=== PATIENT | female | born 1985 | race Caucasian/White ===

== ENCOUNTER 2017-01-01 20:22 | Emergency (ER) | payer MEDICAID, OTHER ==
[2017-01-01 20:45] VITALS: BP 121/64
[2017-01-01] MEDS ORDERED: Ondansetron TAB* 4 MG PO ONE ×2 (21:15→21:32)
[2017-01-01] MEDS ORDERED: Acetaminophen TAB* 325 MG PO ONE (21:15)
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
--- NOTE | 2017-01-01 21:55 | RAD ---
INDICATION: Intracranial injury COMPARISON: None TECHNIQUE: Noncontrast axial source images were acquired from the skull base to the vertex. FINDINGS: Ventricles/sulci: The ventricles and cisterns are normal in size and configuration for age. Brain parenchyma: There is no focal parenchymal finding, evidence of intracranial mass, or intracranial mass effect. Intracranial hemorrhage:None. Extra-axial spaces: There are no abnormal extra axial fluid collections or evidence of extra-axial mass. Calvarium: There is no calvarial fracture or other calvarial abnormality. Scalp: There is no evidence of scalp or extracalvarial soft tissue abnormality. Paranasal sinuses/mastoid: The paranasal sinuses and mastoid air cells are clear. Other: None. IMPRESSION: NEGATIVE EXAMINATION
== END 2017-01-01 22:36 | disposition home or self-care (01) ==
LOC: ED 20:22
DX: S09.90XA Unspecified injury of head, initial encounter (principal); S06.0X0A Concussion without loss of consciousness, initial encounter; Y09 Assault by unspecified means; Y93.9 Activity, unspecified; Y92.9 Unspecified place or not applicable; Y99.9 Unspecified external cause status; R11.0 Nausea; R51 Headache
CPT/HCPCS: 70450; 99283; A9270-GY

== ENCOUNTER 2017-01-12 13:49 | Emergency (ER) | payer MEDICAID, OTHER ==
[2017-01-12] MEDS ORDERED: Ondansetron TAB* 4 MG PO ONE (19:34)
[2017-01-12] MEDS ORDERED: ALPRAZolam TAB* 0.25 MG PO ONE (19:35)
--- NOTE | 2017-01-12 20:15 | RAD ---
Indication: Headache. CT of the brain was performed without IV contrast. Ventricular structures are midline. No midline shift is noted. The extraction spaces are unremarkable. There is no evidence of intracranial mass or hemorrhage. No other high or low density lesions are identified. Mastoid air cells and paranasal sinuses are unremarkable. When compared to previous exam of January 01, 2017 no significant change is noted. IMPRESSION: No intracranial mass or hemorrhage is noted.
[2017-01-12] MEDS ORDERED: Ondansetron INJ* 2 MG/ML VIAL ONE (20:46)
[2017-01-12] MEDS ORDERED: HYDROmorphone INJ* 1 MG/ML CARPUJECT SYRINGE ONE (20:46)
--- NOTE | 2017-01-13 03:17 | ED ---
Luis Christopher Salem, scribed for Jamel Shafer on 01/12/17 at 1940 . Dizziness - HPI Summary HPI Summary: Patient is a 31 y/o female who presents to the ED with dizziness. She reports she was diagnosed with a concussion 10 days ago. She denies a LEWIS, fever, chest pain, but reports 2-3 anxiety attacks per day, disorientation, light sensitivity, and nausea. She is requests trauma counseling and a referral to a neurologist. Pt is a smoker, but denies EtOH use. - History Of Current Complaint Chief Complaint: EDHeadache Stated Complaint: HEAD PAIN/DIZZY Time Seen by Provider: 01/12/17 19:24 Hx Obtained From: Patient Onset/Duration: Gradually Timing: Constant Severity Initially: Moderate Severity Currently: Moderate Character: Dizzy - Disorientation. Aggravating Factor(s): Other - Light. Alleviating Factor(s): Nothing Associated Signs And Symptoms: Positive: Nausea, Other: - Anxiety. - Allergies/Home Medications Allergies/Adverse Reactions: Allergies Allergy/AdvReac Type Severity Reaction Status Date / Time No Known Allergies Allergy Verified 01/12/17 13:52 PMH/Surg Hx/FS Hx/Imm Hx Endocrine/Hematology History: Denies: Hx Diabetes Cardiovascular History: Denies: Hx Hypertension Infectious Disease History: No Infectious Disease History: Denies: Traveled Outside the [place] in Last 30 Days - Family History Known Family History: Positive: Cardiac Disease - Both grandfathers. , Other - Breast cancer - both grandmothers. - Social History Alcohol Use: None Substance Use Type: Reports: None Hx Tobacco Use: Yes Smoking Status (MU): Smoker, Current Status Unknown Review of Systems Negative: Fever Positive: Nausea Neurological: Other - Dizziness. All Other Systems Reviewed And Are Negative: Yes Physical Exam Triage Information Reviewed: Yes Vital Signs On Initial Exam: Initial Vitals Temp Pulse Resp BP Pulse Ox 99.4 F 107 18 124/86 100 01/12/17 13:52 01/12/17 13:52 01/12/17 13:52 01/12/17 13:52 01/12/17 13:52 Vital Signs Reviewed: Yes Appearance: Positive: Well-Appearing, No Pain Distress Skin: Positive: Warm, Skin Color Reflects Adequate Perfusion, Dry Head/Face: Positive: Normal Head/Face Inspection Eyes: Positive: EOMI, AUDREY Neck: Positive: Supple, Nontender Respiratory/Lung Sounds: Positive: Clear to Auscultation, Breath Sounds Present Cardiovascular: Positive: RRR, Pulses are Symmetrical in both Upper and Lower Extremities Abdomen Description: Positive: Nontender, Soft Bowel Sounds: Positive: Present Musculoskeletal: Positive: Normal, Strength/ROM Intact Neurological: Positive: Normal, Sensory/Motor Intact, Alert, Oriented to Person Place, Time - Panther Burn Coma Scale Coma Scale Total: 15 Diagnostics - Vital Signs Vital Signs Temp Pulse Resp BP Pulse Ox 01/12/17 17:00 97.9 F 98 18 136/88 100 01/12/17 16:09 98.0 F 94 18 115/66 100 01/12/17 15:05 98.7 F 108 18 107/77 99 01/12/17 13:52 99.4 F 107 18 124/86 100 - Laboratory Lab Statement: Any lab studies that have been ordered have been reviewed, and results considered in the medical decision making process. - CT BRAIN CT Interpretation Completed By: Radiologist - IMPRESSION: No intracranial mass or hemorrhage is noted. Re-Evaluation - Re-Evaluation 2030 Comment: Discussed Brain CT results with pt and future plans. Pt is agreeable. Will also provide pt with directions to contact outreach and education social worker. Dizzy Course/Dx - Diagnoses Provider Diagnoses: Head injury, Concussion Discharge - Discharge Plan Condition: Stable Disposition: HOME Prescriptions: ALPRAZolam TAB* [Xanax TAB*] 0.25 mg PO BID #10 tab MDD 2 Ondansetron [Zofran Odt] 4 mg PO TID #20 tab Patient Education Materials: Alprazolam (By mouth), Ondansetron (By mouth), Head Injury (ED) Referrals: Sincere Hester MD [Medical Doctor] - Additional Instructions: Follow up with Dr. Hester (Neurologist) within 1 week. The documentation as recorded by the Luis cardona Salem accurately reflects the service I personally performed and the decisions made by , Jamel Shafer.
[2017-01-13 04:06] VITALS: BP 114/74
== END 2017-01-12 21:00 | disposition home or self-care (01) ==
LOC: ED 13:49
DX: S06.0X9A Concussion with loss of consciousness of unspecified duration, initial encounter (principal); S09.90XA Unspecified injury of head, initial encounter; R42 Dizziness and giddiness; R11.0 Nausea; F41.9 Anxiety disorder, unspecified; X58.XXXA Exposure to other specified factors, initial encounter; Y93.9 Activity, unspecified; Y92.9 Unspecified place or not applicable; Z72.0 Tobacco use
CPT/HCPCS: 70450; 96374; 96375; 99283; A9270-GY; J1170; J2405

== ENCOUNTER 2017-09-12 16:41 | Emergency (ER) | payer SELFPAY ==
[2017-09-12 16:56] VITALS: BP 107/61
--- NOTE | 2017-09-12 17:29 | UC ---
Complaint Female HPI - HPI Summary HPI Summary: This is an otherwise healthy 31 yo male who presented with c/o dysuria and vaginal odor. Patient is concerned about an STD. She had unprotected intercourse ~1 month ago. She has been using vinegar douches, homeopathic vaginal suppositories, and cranberry tablets to treat what she thought was BV and a UTI. She now has abd pain and c/o feelings of being feverish. She would like to be screened for all STDs. Denies vaginal lesions. - History Of Current Complaint Chief Complaint: UCGU Stated Complaint: PERSONAL Hx Last Menstrual Period: 08/17/17 - Allergies/Home Medications Allergies/Adverse Reactions: Allergies Allergy/AdvReac Type Severity Reaction Status Date / Time No Known Allergies Allergy Verified 09/12/17 16:57 Home Medications: Home Medications Cranberry (Vaccinium Macrocarp [Cranberry] 5 tab PO DAILY 09/12/17 [History Confirmed 09/12/17] Garlic 5 tab PO DAILY 09/12/17 [History Confirmed 09/12/17] PMH/Surg Hx/FS Hx/Imm Hx Previously Healthy: Yes - Surgical History Surgical History: Yes Surgery Procedure, Year, and Place: tonsilectomy - Family History Known Family History: Positive: Cardiac Disease - Both grandfathers. , Other - Breast cancer - both grandmothers. - Social History Alcohol Use: Rare Substance Use Type: None Smoking Status (MU): Light Every Day Tobacco Smoker Type: Cigarettes Amount Used/How Often: 1/4-1/2 ppd Length of Time of Smoking/Using Tobacco: since age 15 Review of Systems Constitutional: Negative Skin: Negative Eyes: Negative ENT: Negative Respiratory: Negative Cardiovascular: Negative Gastrointestinal: Abdominal Pain Genitourinary: Dysuria Motor: Negative Neurovascular: Negative Musculoskeletal: Negative Neurological: Negative Psychological: Negative Is Patient Immunocompromised?: No All Other Systems Reviewed And Are Negative: Yes Physical Exam Triage Information Reviewed: Yes Appearance: Well-Appearing Vital Signs: Initial Vital Signs Temp 98.7 F 09/12/17 16:46 Pulse 79 09/12/17 16:46 Resp 14 09/12/17 16:46 BP 107/61 09/12/17 16:46 Pulse Ox 99 09/12/17 16:46 Vital Signs Reviewed: Yes ENT Exam: Normal Neck exam: Normal Respiratory Exam: Normal Respiratory: Positive: Lungs clear. Negative: Crackles, Rhonchi, Wheezing Cardiovascular: Positive: RRR, No Murmur Abdomen Description: Positive: Soft. Negative: Nontender - diffuse TTP Musculoskeletal: Positive: Strength Intact Neurological Exam: Normal Psychological Exam: Normal Skin Exam: Normal - Additional Comments Pelvic exam: External genitalia is free of lesions. Some vaginal bleeding noted , no additional odor or discharge. No CMT. Cervix free of lesions Diagnostics - Laboratory Diagnostic Studies Completed/Ordered: UA - neg. Upreg - neg Complaint Female Dx - Course Course Of Treatment: This is a 31 yo female concerned about an STD with c/o dysuria and vaginal odor. UA neg. No obvious exam findings minus diffuse abd pain. Collected vaginal and urine samples. Patient left the clinic before blood draw could be collected. - Differential Dx/Diagnosis Differential Diagnosis/HQI/PQRI: Pelvic Inflammatory Disease, Sexually Transmitted Disease, Urinary Tract Infection Provider Diagnoses: 1. Possible STD - results pending, no empiric treatment Discharge - Discharge Plan Condition: Stable Disposition: HOME Patient Education Materials: Sexually Transmitted Diseases (ED) Referrals: Eder SHAW,Kiko Jennings [Primary Care Provider] - If Needed Additional Instructions: Instructions: 1. Your urinanalysis and exam today were normal 2. We will receive you lab results in 1-2d and you will be contacted in the case of a positive result
[2017-09-13 11:35] LABS: Trichomonas Source Endocervical (Negative)
--- NOTE | 2017-09-13 18:10 | ED ---
Progress - Progress Note Progress Note: call patient. gardnerella (+). will call in flagy 500 bid x 7 days. Course/Dx - Course Course Of Treatment: This is a 31 yo female concerned about an STD with c/o dysuria and vaginal odor. UA neg. No obvious exam findings minus diffuse abd pain. Collected vaginal and urine samples. Patient left the clinic before blood draw could be collected. - Diagnoses Provider Diagnoses: Vaginal discharge
--- NOTE | 2017-09-14 15:29 | ED ---
Progress - Progress Note Progress Note: call patient. gardnerella (+). will call in flagy 500 bid x 7 days. 09/14/17 call patient g/c/tric negative Course/Dx - Course Course Of Treatment: This is a 31 yo female concerned about an STD with c/o dysuria and vaginal odor. UA neg. No obvious exam findings minus diffuse abd pain. Collected vaginal and urine samples. Patient left the clinic before blood draw could be collected. - Diagnoses Provider Diagnoses: Vaginal discharge
== END 2017-09-12 17:45 | disposition home or self-care (01) ==
LOC: UCEAST 16:41
DX: R30.0 Dysuria (principal); N89.8 Other specified noninflammatory disorders of vagina; Z32.02 Encounter for pregnancy test, result negative; F17.210 Nicotine dependence, cigarettes, uncomplicated
CPT/HCPCS: 81003; 84702; 87480; 87491; 87510; 87591; 87661; 99212; G0463

== ENCOUNTER 2018-07-15 16:35 | Emergency (ER) | payer MEDICAID ==
[2018-07-15] MEDS ORDERED: diPHENhydraMINE IV* 50 MG/ML 1 ml VIAL (BENADRYL) IV ONE (17:51)
[2018-07-15] MEDS ORDERED: NS 0.9% 1000 ML* 1,000 ML IV ONE (17:51)
[2018-07-15] MEDS ORDERED: Metoclopramide IV* 5 MG/ML 2 ML VIAL IV SLOW PU ONE (17:51)
[2018-07-15] MEDS ORDERED: Ketorolac INJ* 30 MG/ML 1 ML VIAL IV PUSH ONE (17:52)
[2018-07-15 18:41] LABS: ABS Basophils 0.1 10^3/ul (0-0.2); ABS Eosinophils 0 10^3/ul (0-0.6); ABS Monocytes 0.3 10^3/ul (0-0.8); ABS Neutrophils 3.8 10^3/ul (1.5-7.7); ABS Nucleated RBC 0 10^3/ul; Eosinophil % 0.7 % (0-6); Hematocrit 41 % (35-47); Hemoglobin 13.7 g/dl (12.0-16.0); Lymphocyte % 32.4 % (25-47); Mean Corpuscular HGB Conc 34 g/dl (31-36); Mean Corpuscular Hemoglobin 31 pg (27-31); Mean Corpuscular Volume 92 fL (80-97); Mean Platelet Volume 8.4 um3 (7.4-10.4); Nucleated Red Blood Cells % 0.1; Platelet Count 309 10^3/ul (150-450); Red Blood Count 4.43 10^6/ul (4.00-5.40); Red Cell Distribution Width 13 % (10.5-15); White Blood Count 6.2 10^3/ul (3.5-10.8)
[2018-07-15 18:53] LABS: EGFR Non-African American 97.4 (>60)
--- NOTE | 2018-07-15 19:09 | RAD ---
EXAM: CT Head Without Intravenous Contrast CLINICAL HISTORY: 32 years old, female; Signs and symptoms; Other: Headache TECHNIQUE: Axial computed tomography images of the head/brain without intravenous contrast. All CT scans at this facility use at least one of these dose optimization techniques: automated exposure control; mA and/or kV adjustment per patient size (includes targeted exams where dose is matched to clinical indication); or iterative reconstruction. COMPARISON: BRAIN WO CT BRAIN WO 01/12/2017 7:56 PM FINDINGS: Brain: Unremarkable. No hemorrhage. No significant white matter disease. No edema. Ventricles: Unremarkable. No ventriculomegaly. Bones/joints: Unremarkable. No acute fracture. Soft tissues: Unremarkable. Sinuses: Unremarkable as visualized. No acute sinusitis. Mastoid air cells: Unremarkable as visualized. No mastoid effusion. IMPRESSION: No acute intracranial pathology.
--- NOTE | 2018-07-15 20:06 | ED ---
Headache - HPI Summary HPI Summary: 32-year-old female presents with headache for the past couple days. States she admits to photophobia. She states she is nauseous. She denies any diarrhea. She states she's been having difficulties concentrating. She states that everything feels hypersensitive. She states that she has been feels like when she has concussion a year and a half ago. She was seen by multiple neurologists for the concussion. She states that she was not having concussion symptoms for the past couple months but then on Sunday the symptoms returned. She denies any new head injury. She denies any history of migraines. She states she's been a lot of stress in her life due to recent miscarriage. She said been crying a lot. - History Of Current Complaint Chief Complaint: EDHeadache Stated Complaint: HEADACHE/SENSITIVE TO LIGHT Time Seen by Provider: 07/15/18 17:43 Hx Last Menstrual Period: 08/17/17 - Allergies/Home Medications Allergies/Adverse Reactions: Allergies Allergy/AdvReac Type Severity Reaction Status Date / Time No Known Allergies Allergy Verified 07/15/18 16:46 PMH/Surg Hx/FS Hx/Imm Hx Endocrine/Hematology History: Denies: Hx Diabetes Cardiovascular History: Denies: Hx Hypertension Respiratory History: Reports: Hx Pneumonia Denies: Hx Asthma Psychiatric History: Denies: Hx Eating Disorder, Hx of Violent Episodes Against Others - Surgical History Surgery Procedure, Year, and Place: tonsilectomy Infectious Disease History: No Infectious Disease History: Denies: Traveled Outside the [place] in Last 30 Days - Family History Known Family History: Positive: Cardiac Disease - Both grandfathers. , Other - Breast cancer - both grandmothers. - Social History Alcohol Use: None Substance Use Type: Reports: Other Substance Use Comment - Amount & Last Used: kratom occasionally Hx Tobacco Use: Yes Smoking Status (MU): Current Some Day Smoker Type: Cigarettes Amount Used/How Often: 1/4-1/2 ppd Length of Time of Smoking/Using Tobacco: since age 15 Review of Systems Negative: Fever Negative: Chest Pain Negative: Shortness Of Breath Positive: Headache All Other Systems Reviewed And Are Negative: Yes Physical Exam Triage Information Reviewed: Yes Vital Signs On Initial Exam: Initial Vitals Temp Pulse Resp BP Pulse Ox 98.2 F 65 19 140/80 97 07/15/18 16:38 07/15/18 16:38 07/15/18 16:38 07/15/18 16:38 07/15/18 16:38 Vital Signs Reviewed: Yes Appearance: Positive: Well-Appearing Skin: Positive: Warm, Dry Head/Face: Positive: Normal Head/Face Inspection Eyes: Positive: Normal, Conjunctiva Clear ENT: Positive: Pharynx normal Respiratory/Lung Sounds: Positive: Clear to Auscultation, Breath Sounds Present Cardiovascular: Positive: Normal, RRR Abdomen Description: Positive: Nontender, Soft Bowel Sounds: Positive: Present Musculoskeletal: Positive: Normal Neurological: Positive: Sensory/Motor Intact, Alert, Oriented to Person Place, Time, CN Intact II-III Psychiatric: Positive: Normal - Gagandeep Coma Scale Best Eye Response: 4 - Spontaneous Best Motor Response: 6 - Obeys Commands Best Verbal Response: 5 - Oriented Coma Scale Total: 15 Diagnostics - Vital Signs Vital Signs Temp Pulse Resp BP Pulse Ox 07/15/18 18:14 104/68 07/15/18 18:01 62 101/65 97 07/15/18 18:00 57 97 07/15/18 17:32 62 105/47 98 07/15/18 17:31 74 97 07/15/18 16:38 98.2 F 65 19 140/80 97 - Laboratory Lab Results: Lab Results 07/15/18 07/15/18 Range/Units 18:25 18:25 WBC 6.2 (3.5-10.8) 10^3/ul RBC 4.43 (4.00-5.40) 10^6/ul Hgb 13.7 (12.0-16.0) g/dl Hct 41 (35-47) % MCV 92 (80-97) fL MCH 31 (27-31) pg MCHC 34 (31-36) g/dl RDW 13 (10.5-15) % Plt Count 309 (150-450) 10^3/ul MPV 8.4 (7.4-10.4) um3 Neut % (Auto) 60.7 (38-83) % Lymph % (Auto) 32.4 (25-47) % [place] % (Auto) 5.4 (0-7) % Eos % (Auto) 0.7 (0-6) % Baso % (Auto) 0.8 (0-2) % Absolute Neuts (auto) 3.8 (1.5-7.7) 10^3/ul Absolute Lymphs (auto) 2.0 (1.0-4.8) 10^3/ul Absolute Monos (auto) 0.3 (0-0.8) 10^3/ul Absolute Eos (auto) 0 (0-0.6) 10^3/ul Absolute Basos (auto) 0.1 (0-0.2) 10^3/ul Absolute Nucleated RBC 0 10^3/ul Nucleated RBC % 0.1 Sodium 138 (135-145) mmol/L Potassium 4.1 (3.5-5.0) mmol/L Chloride 109 (101-111) mmol/L Carbon Dioxide 23 (22-32) mmol/L Anion Gap 6 (2-11) mmol/L BUN 9 (6-24) mg/dL Creatinine 0.69 (0.51-0.95) mg/dL Est GFR ( Amer) 117.8 (>60) Est GFR (Non-Af Amer) 97.4 (>60) BUN/Creatinine Ratio 13.0 (8-20) Glucose 91 (70-100) mg/dL Calcium 9.2 (8.6-10.3) mg/dL Magnesium Pending Total Bilirubin 0.70 (0.2-1.0) mg/dL AST 14 (13-39) U/L ALT 13 (7-52) U/L Alkaline Phosphatase 53 (34-104) U/L C-Reactive Protein < 1.00 (<8.01) mg/L Total Protein 6.5 (6.4-8.9) g/dL Albumin 4.3 (3.2-5.2) g/dL Globulin 2.2 (2-4) g/dL Albumin/Globulin Ratio 2.0 (1-3) Beta HCG, Quant < 0.60 mIU/mL Result Diagrams: 07/15/18 18:25 07/15/18 18:25 Lab Statement: Any lab studies that have been ordered have been reviewed, and results considered in the medical decision making process. - CT brain CT Interpretation: No Acute Changes CT Interpretation Completed By: Radiologist Re-Evaluation - Re-Evaluation First Eval Re-Evaluation Time: 20:53 Change: Improved Comment: feeling better, no longer nausous Headache Course/Dx - Course Course Of Treatment: 32-year-old female presents with headache for the past couple days. States she admits to photophobia. She states she is nauseous. She denies any diarrhea. She states she's been having difficulties concentrating. She states that everything feels hypersensitive. She states that she has been feels like when she has concussion a year and a half ago. She was seen by multiple neurologists for the concussion. She states that she was not having concussion symptoms for the past couple months but then on Sunday the symptoms returned. She denies any new head injury. She denies any history of migraines. She states she's been a lot of stress in her life due to recent miscarriage. She said been crying a lot. On exam normal neuro exam. Patient appears photophobic. gave Benadryl Toradol and Reglan and feeling better. CT brain normal. Labs within normal limits. Told to follow- up with neurology as likely has migaines. gave Zofran for nausea. Patient understands agrees with plan. - Diagnoses Differential Diagnosis/HQI/PQRI: Subdural Hematoma, Migraine, Tension Headache, Viral Syndrome Provider Diagnoses: Headache Discharge - Sign-Out/Discharge Documenting (check all that apply): Patient Departure - Discharge Plan Condition: Good Disposition: HOME Prescriptions: Ondansetron ODT TAB* [Zofran 4 MG Odt TAB*] 4 mg PO Q6H PRN #12 tab.odt PRN Reason: Nausea Patient Education Materials: General Headache (ED) Referrals: Eder SHAW,Kiko Jennings [Primary Care Provider] - Kiko Lambert MD [Medical Doctor] - Additional Instructions: Take Tylenol or ibuprofen for pain every 6 hours Take zofran every 6 hours for nausea Follow up with neurology Return to ED if develop any new or worsening symptoms - Billing Disposition and Condition Condition: GOOD Disposition: Home
[2018-07-15 20:21] VITALS: BP 98/71
== END 2018-07-15 20:21 | disposition home or self-care (01) ==
LOC: ED 16:35
DX: R51 Headache (principal); Z72.0 Tobacco use; H53.149 Visual discomfort, unspecified; R11.0 Nausea
CPT/HCPCS: 36415; 70450; 80053; 83735; 84702; 85025; 86140; 96361; 96374; 96375; 99283; J1200; J1885; J2765

== ENCOUNTER 2019-08-28 13:54 | Emergency (ER) | payer MEDICAID, OTHER ==
--- NOTE | 2019-08-28 16:24 | ED ---
Skin Complaint - HPI Summary HPI Summary: Patient c/o rash/boil, posterior neck, initial onset several days ago. states attempted to saúl boil, no purulent d/c. Patient worried may spread. Subjective fever, mild headache. no n/v, systemic symptoms. have been taking motrin and applying topical abx. - History of Current Complaint Chief Complaint: EDHeadache Time Seen by Provider: 08/28/19 16:00 Stated Complaint: CYST PER PT Hx Obtained From: Patient Hx Last Menstrual Period: 08/17/17 Onset/Duration: Started Days Ago Timing: Constant Onset Severity: Moderate Current Severity: Mild Pain Intensity: 4 Skin Location: Other: - neck - Allergy/Home Medications Allergies/Adverse Reactions: Allergies Allergy/AdvReac Type Severity Reaction Status Date / Time No Known Allergies Allergy Verified 08/28/19 14:13 PMH/Surg Hx/FS Hx/Imm Hx Endocrine/Hematology History: Denies: Hx Diabetes Cardiovascular History: Denies: Hx Hypertension Respiratory History: Reports: Hx Pneumonia Denies: Hx Asthma Psychiatric History: Denies: Hx Eating Disorder, Hx of Violent Episodes Against Others - Surgical History Surgery Procedure, Year, and Place: tonsilectomy Infectious Disease History: No Infectious Disease History: Denies: Traveled Outside the [place] in Last 30 Days - Family History Known Family History: Positive: Cardiac Disease - Both grandfathers. , Other - Breast cancer - both grandmothers. - Social History Alcohol Use: Occasionally Substance Use Type: Reports: Other Substance Use Comment - Amount & Last Used: kratom occasionally Hx Tobacco Use: Yes Smoking Status (MU): Current Some Day Smoker Type: Cigarettes Amount Used/How Often: 1/4-1/2 ppd Length of Time of Smoking/Using Tobacco: since age 15 Review of Systems Positive: Rash - small boil, area of erythema and excoriation, right aspect of posterior neck. area not fluctuant. All Other Systems Reviewed And Are Negative: Yes Physical Exam Triage Information Reviewed: Yes Vital Signs On Initial Exam: Initial Vitals Temp Pulse Resp BP Pulse Ox 98.1 F 84 16 113/82 96 08/28/19 14:09 08/28/19 14:09 08/28/19 14:09 08/28/19 14:09 08/28/19 14:09 Vital Signs Reviewed: Yes Appearance: Positive: Well-Appearing, No Pain Distress Skin: Positive: Warm, Skin Color Reflects Adequate Perfusion, Other - small boil /erythema, excoriation, left posterior neck. not fluctuant. Head/Face: Positive: Normal Head/Face Inspection Eyes: Positive: Normal ENT: Positive: Normal ENT inspection Neck: Positive: Supple, No Lymphadenopathy Respiratory/Lung Sounds: Positive: Clear to Auscultation Cardiovascular: Positive: Normal Musculoskeletal: Positive: Normal Neurological: Positive: Normal Psychiatric: Positive: Normal Procedures - Sedation Patient Received Moderate/Deep Sedation with Procedure: No Diagnostics - Vital Signs Vital Signs Temp Pulse Resp BP Pulse Ox 08/28/19 14:09 98.1 F 84 16 113/82 96 - Laboratory Lab Statement: Any lab studies that have been ordered have been reviewed, and results considered in the medical decision making process. Course/Dx - Course Course Of Treatment: s/s c/w small boil. no indication for I&D at this time. topical abx likely adequate treatment, however, given pt concern, will prescrible keflex for 4 days. - Diagnoses Provider Diagnoses: Boil of neck, Cellulitis of neck Discharge ED - Sign-Out/Discharge Documenting (check all that apply): Patient Departure - Discharge Plan Condition: Good Disposition: HOME Prescriptions: Cephalexin CAP* [Keflex CAP*] 500 mg PO QID 4 Days #16 cap Patient Education Materials: Cellulitis (ED), Abscess (ED) Referrals: Eder SHAW,Kiko Jennings [Primary Care Provider] - - Billing Disposition and Condition Condition: GOOD Disposition: Home
[2019-08-28 16:54] VITALS: BP 115/83
== END 2019-08-28 16:54 | disposition home or self-care (01) ==
LOC: ED 13:54
DX: L02.12 Furuncle of neck (principal); L03.221 Cellulitis of neck; F17.210 Nicotine dependence, cigarettes, uncomplicated
CPT/HCPCS: 99282

== ENCOUNTER 2020-10-19 14:09 | Inpatient (IN) ==
[2020-10-19] MEDS ORDERED: Lactated Ringers 1000 ml BAG 1,000 ML IV ONE (17:00)
[2020-10-19] MEDS ORDERED: Buffered Lidocaine 1% SYRIN 1 ml INTRADERM ONE (17:00)
[2020-10-19 18:16] LABS: Urine Benzodiazepine Screen None Detected (None Detect); Urine Cannabinoids Screen None Detected (None Detect); Urine Opiates Screen None Detected (None Detect)
[2020-10-19] MEDS ORDERED: Morphine 10 MG/ML VIAL (1 ml) IV ONE (18:29)
[2020-10-19] MEDS ORDERED: Promethazine INJ(RESTRICTED) 25 MG/ML 1 ml VIAL IV ONE (18:29)
[2020-10-19] MEDS ORDERED: Lidocaine 2.5%/Prilocain 2.5% 5 GM TUBE TOPICAL ONE (19:05)
[2020-10-19] MEDS ORDERED: Lidocaine 2.5%/Prilocain 2.5% 5 GM TUBE ONE (19:24)
[2020-10-19 20:24] LABS: ABS Basophils 0.1 10^3/ul (0-0.2); ABS Lymphocytes 2.5 10^3/ul (1.0-4.8); ABS Monocytes 0.7 10^3/ul (0-0.8); ABS Neutrophils 9.2 10^3/ul (1.5-7.7); Eosinophil % 0.3 %; Hematocrit 37 % (35-47); Hemoglobin 12.3 g/dL (12.0-16.0); Lymphocyte % 20.1 %; Mean Corpuscular HGB Conc 34 g/dL (31-36); Mean Corpuscular Hemoglobin 28 pg (27-31); Mean Corpuscular Volume 84 fL (80-97); Mean Platelet Volume 9.3 fL (7.4-10.4); Platelet Count 246 10^3/uL (150-450); Red Blood Count 4.35 10^6 /uL (3.70-4.87); Red Cell Distribution Width 15 % (10-15); White Blood Count 12.5 10^3/uL (3.5-10.8)
[2020-10-19] MEDS ORDERED: OBEPIDURAL 250 ML EPIDURAL ONE (23:36)
[2020-10-20] MEDS ORDERED: Phenylephrine 40 mcg/mL 10mL (400mcg) SYRINGE IV PUSH PRN ×2 (02:20)
[2020-10-20] MEDS ORDERED: Sodium Citrate/Citric Acid LIQ 15 ML UDC PO PRN (02:20)
[2020-10-20] MEDS ORDERED: Lactated Ringers 1000 ml BAG 1,000 ML IV ONE (02:20)
[2020-10-20] MEDS ORDERED: Lactated Ringers 1000 ml BAG 1,000 ML IV SCH (03:00)
[2020-10-20] MEDS ORDERED: OBEPIDURAL 250 ML EPIDURAL SCH (03:00)
[2020-10-20] MEDS: Lactated Ringers 1000 ml BAG 1,000 ML IV SCH ×2 (03:43→21:35)
[2020-10-20] MEDS ORDERED: diPHENhydraMINE IV 50 MG/ML 1 ml VIAL (BENADRYL) IV PRN (09:04)
[2020-10-20] MEDS ORDERED: Oxytocin in LR 20 UNITS/1,000 ML BAG IVPB ONE (14:29)
[2020-10-20] MEDS ORDERED: Oxytocin in LR 20 UNITS/1,000 ML BAG IVPB SCH (15:00)
[2020-10-20] MEDS ORDERED: Bupivacaine 0.25% SDV PF 10 ML VIAL INJ ONE ×2 (16:35→16:50)
[2020-10-20] MEDS ORDERED: Lidocaine 2% w/ EPI 1:200,000 MPF 20 ML SDV VIAL ONE (17:56)
[2020-10-20] MEDS ORDERED: OBEPIDURAL 250 ML EPIDURAL ONE (22:10)
[2020-10-20] MEDS ORDERED: ceFOXitin 2 GM IVPREMIX 2 GM/50 ML BAG ONE (22:59)
[2020-10-20] MEDS ORDERED: Morphine PF AMP (0.5MG/ML) 5 MG/10 ML AMP ONE (23:26)
[2020-10-20] MEDS ORDERED: fentaNYL 100 mcg/2 ml 50 MCG/ML VIAL ONE (23:26)
[2020-10-20] MEDS ORDERED: Phenylephrine 40 mcg/mL 10mL (400mcg) SYRINGE ONE (23:26)
[2020-10-20] MEDS ORDERED: Oxytocin 10 UNITS/ML 1 ML VIAL ONE (23:26)
[2020-10-21] MEDS ORDERED: Naloxone 0.4 mg VIAL 0.4 mg/ml 1 ml VIAL IV PRN ×2 (00:23→00:24)
[2020-10-21] MEDS ORDERED: fentaNYL 100 mcg/2 ml 50 MCG/ML VIAL IV PRN (00:23)
[2020-10-21] MEDS ORDERED: Ondansetron 4 mg VIAL 2 MG/ML 2 ml VIAL IV PRN ×2 (00:23→00:24)
[2020-10-21] MEDS ORDERED: oxyCODONE/Acetamin 5/325 mg TAB PO PRN (00:24)
[2020-10-21] MEDS ORDERED: diPHENhydraMINE IV 50 MG/ML 1 ml VIAL (BENADRYL) IV PRN (00:24)
[2020-10-21] MEDS ORDERED: Dibucaine 1% OINT 28.35 GM TUBE PR PRN (01:34)
[2020-10-21] MEDS ORDERED: Glycerin ADULT 2.4 gm SUPP PR PRN (01:34)
[2020-10-21] MEDS ORDERED: Witch Hazel PAD JAR TOPICAL PRN (01:34)
[2020-10-21] MEDS ORDERED: Oxytocin in LR 20 UNITS/1,000 ML BAG IVPB SCH (02:00)
[2020-10-21] MEDS ORDERED: Lactated Ringers 1000 ml BAG 1,000 ML IV SCH (02:00)
[2020-10-21] MEDS: oxyCODONE/Acetamin 5/325 mg TAB PO PRN ×3 (02:15→09:02)
[2020-10-21 12:42] LABS: Urine Appearance Clear; Urine Bilirubin Negative (Negative); Urine Blood 2+ (Negative); Urine Color Straw; Urine Glucose Negative (Negative); Urine Ketones Negative (Negative); Urine Nitrite Negative (Negative); Urine Protein Negative (Negative); Urine Specific Gravity 1.003 (1.010-1.030); Urine Urobilinogen Negative (Negative)
[2020-10-21 13:01] LABS: Urine Bacteria 1+ (Absent); Urine Red Blood Cell Trace(0-2/hpf) (Absent); Urine Squamous Epithelial Cell Present (Absent); Urine White Blood Cell Trace(0-5/hpf) (Absent)
[2020-10-22 07:44] LABS: ABS Eosinophils 0.1 10^3/ul (0-0.6); ABS Lymphocytes 2.6 10^3/ul (1.0-4.8); ABS Monocytes 0.7 10^3/ul (0-0.8); ABS Neutrophils 15.2 10^3/ul (1.5-7.7); Eosinophil % 0.7 %; Hematocrit 32 % (35-47); Hemoglobin 10.2 g/dL (12.0-16.0); Lymphocyte % 14.1 %; Mean Corpuscular HGB Conc 32 g/dL (31-36); Mean Corpuscular Hemoglobin 28 pg (27-31); Mean Corpuscular Volume 86 fL (80-97); Mean Platelet Volume 8.3 fL (7.4-10.4); Platelet Count 262 10^3/uL (150-450); Red Blood Count 3.71 10^6 /uL (3.70-4.87); Red Cell Distribution Width 16 % (10-15); White Blood Count 18.8 10^3/uL (3.5-10.8)
[2020-10-22] MEDS: Lidocaine 2% JELLY 6 ML TOPICAL SCH (23:32)
[2020-10-23] MEDS: Lidocaine 2% JELLY 6 ML TOPICAL SCH ×2 (08:07→18:11)
[2020-10-24] MEDS ORDERED: Scopolamine PATCH Remove NOTE PATCH OFF PRN
[2020-10-24] MEDS: Lidocaine 2% JELLY 6 ML TOPICAL SCH (09:36)
[2020-10-24 09:50] VITALS: BP 141/79
== END 2020-10-24 13:56 | disposition home or self-care (01) | DRG 540 ==
LOC: MCHOBOUT 14:09 → MCHOB 16:42
PROVIDERS: ADMIT Midwife; ATTEND Obstetrics & Gynecology